=== PATIENT | male | born 1980 | race Caucasian/White ===

== ENCOUNTER 2019-08-04 16:27 | Inpatient (IN) | payer MEDICARE, MEDICAID ==
--- NOTE | 2019-08-04 17:03 | ED ---
Psychiatric Complaint - HPI Summary HPI Summary: This patient is a 38 year old M with a history of bipolar presenting to ED with a chief complaint of worsening psychiatric complaints since last November. Patient is [facility]. He states that right now he is not having an episode of his bipolar and he is very agreeable to me in the ED room. Patient states the medications he has been taking are no longer as effective and his bipolar has been getting worse. Patient reports he is more irritable more frequently. Patients family reports patient has been binge drinking alcohol a lot more, taking other drugs, and having more SI. Patient typically takes Ativan, Latuda, Odefsey, Xtampza, Zolpidem, and Gabapentin. Patient has been taking more oxycodone when he is not prescribed it. He also reports having increased episodes of blacking out. Patient last binge drank on 08/02/2019. Patient reports he is HIV+, but was unable to get his bloodwork checked recently. He is requesting a CD4 and a viral load. Patient was also recently diagnosed with Lymes disease. He had taken the 30-day course of doxycycline but he has not followed up with his doctor regarding the Lymes. He would like to follow-up on his Lymes before changing any of his psychiatric medications. The patient rates the pain 0/10 in severity. Symptoms aggravated by nothing. Symptoms alleviated by nothing. Patient denies fever. - History Of Current Complaint Chief Complaint: EDMentalHealth Time Seen by Provider: 08/04/19 16:53 Hx Obtained From: Patient Onset/Duration: Gradual Onset, Lasting Weeks - Since last November 2018, Still Present, Worse Since Timing: Constant Severity Initially: Mild Severity Currently: Moderate Aggravating Factor(s): Nothing Alleviating Factor(s): Nothing Associated Signs And Symptoms: Positive: Negative - Fever Related History: Positive For: Prior Psychiatric Issues Has Suicidal: Denies: Thoughts - Allergies/Home Medications Allergies/Adverse Reactions: Allergies Allergy/AdvReac Type Severity Reaction Status Date / Time amoxicillin Allergy Anaphylatic Verified 08/04/19 16:37 Shock cefaclor [From Ceclor] Allergy Rash Verified 08/04/19 16:37 Penicillins Allergy Anaphylatic Verified 08/04/19 16:37 Shock PMH/Surg Hx/FS Hx/Imm Hx Musculoskeletal History: Reports: Hx Back Problems, Hx Scoliosis, Other Musculoskeletal History - Scheurman's Disease Sensory History: Reports: Hx Cataracts, Hx Hearing Problem - tinnitus in both ears Opthamlomology History: Reports: Hx Cataracts Neurological History: Reports: Other Neuro Impairments/Disorders - Brain Cavernoma Psychiatric History: Reports: Hx Anxiety, Hx Depression, Hx Panic Disorder, Hx Inpatient Treatment, Hx Community Mental Health Tx, Hx Bipolar Disorder, Hx Suicide Attempt, Hx Substance Abuse Denies: Hx Eating Disorder, Hx Post Traumatic Stress Disorder, Hx Schizophrenia, Hx of Violent Episodes Against Others - Surgical History Surgery Procedure, Year, and Place: surgical biopsy, right inguinal canal, for a benign tumor Infectious Disease History: Yes Infectious Disease History: Reports: Hx Human Immunodeficiency Virus (HIV) - Pt diagnosed in 2011 Denies: Traveled Outside the [place] in Last 30 Days - Family History Known Family History: Positive: Other - Bipolar - Social History Alcohol Use: Binge drinking more often now Hx Substance Use: No Substance Use Type: Reports: None Smoking Status (MU): Light Every Day Tobacco Smoker Type: Cigarettes Have You Smoked in the Last Year: Yes Review of Systems Negative: Fever Psychological: Other - Binge-drinking, bipolar episodes All Other Systems Reviewed And Are Negative: Yes Physical Exam - Summary Physical Exam Summary: Appearance: The patient is well-nourished in no acute distress and in no acute pain. Skin: The skin is warm and dry, and skin color reflects adequate perfusion. HEENT: The head is normocephalic and atraumatic. The pupils are equal and reactive. The conjunctivae are clear and without drainage. Nares are patent and without drainage. Mouth reveals moist mucous membranes, and the throat is without erythema and exudate. The external ears are intact. The ear canals are patent and without drainage. The tympanic membranes are intact. Neck: The neck is supple with full range of motion and non-tender. There are no carotid bruits. There is no neck vein distension. Respiratory: Chest is non-tender. Lungs are clear to auscultation and breath sounds are symmetrical and equal. Cardiovascular: Heart is regular rate and rhythm. There is no murmur or rub auscultated. There is no peripheral edema and pulses are symmetrical and equal. Abdomen: The abdomen is soft and non-tender. There are normal bowel sounds heard in all four quadrants and there is no organomegaly palpated. Musculoskeletal: There is no back tenderness noted. Extremities are non-tender with full range of motion. There is good capillary refill. There is no peripheral edema or calf tenderness elicited. Neurological: Patient is alert and oriented to person, place and time. The patient has symmetrical motor strength in all four extremities. Cranial nerves are grossly intact. Deep tendon reflexes are symmetrical and equal in all four extremities. Psychiatric: The patient has an appropriate affect and does not exhibit any anxiety or depression. Triage Information Reviewed: Yes Vital Signs On Initial Exam: Initial Vitals Temp Pulse Resp BP Pulse Ox 99.2 F 80 19 136/60 100 08/04/19 16:29 08/04/19 16:29 08/04/19 16:29 08/04/19 16:29 08/04/19 16:29 Vital Signs Reviewed: Yes Procedures - Sedation Patient Received Moderate/Deep Sedation with Procedure: No Diagnostics - Vital Signs Vital Signs Temp Pulse Resp BP Pulse Ox 08/04/19 16:29 99.2 F 80 19 136/60 100 - Laboratory Result Diagrams: 08/04/19 17:24 08/04/19 17:24 Lab Statement: Any lab studies that have been ordered have been reviewed, and results considered in the medical decision making process. Re-Evaluation - Re-Evaluation First Eval Re-Evaluation Time: 18:28 Comment: Patient is medically clear for MHE. Course/Dx - Course Course Of Treatment: He has been medically cleared here in the emergency department and is awaiting a mental health eval. - Differential Dx/Clinical Impression Provider Diagnosis: Bipolar 1 disorder Discharge ED - Sign-Out/Discharge Documenting (check all that apply): Sign-Out Patient Signing out patient TO: Celeste Mohan - Discharge Plan Referrals: Basim INTERIANO,Kiel Alonso [Primary Care Provider] - - Attestation Statements Document Initiated by Scribe: Yes Documenting Scribe: Abe Taylor Provider For Whom Randy is Documenting (Include Credential): Duke Burnett MD Scribe Attestation: I, Abe Taylor, scribed for Duke Burnett MD on 08/04/19 at 1838. Scribe Documentation Reviewed: Yes Provider Attestation: The documentation as recorded by the Abe anna accurately reflects the service I personally performed and the decisions made by me, Duke Burnett MD Status of Scribe Document: Viewed
[2019-08-04 17:34] LABS: ABS Basophils 0.1 10^3/ul (0-0.2); ABS Lymphocytes 1.5 10^3/ul (1.0-4.8); ABS Monocytes 1.2 10^3/ul (0-0.8); ABS Neutrophils 11.6 10^3/ul (1.5-7.7); Eosinophil % 0.3 %; Hematocrit 45 % (42-52); Hemoglobin 15.2 g/dL (14.0-18.0); Lymphocyte % 10.3 %; Mean Corpuscular HGB Conc 34 g/dL (31-36); Mean Corpuscular Hemoglobin 33 pg (27-31); Mean Corpuscular Volume 98 fL (80-94); Mean Platelet Volume 6.7 fL (7.4-10.4); Platelet Count 472 10^3/uL (150-450); Red Blood Count 4.56 10^6 /uL (4.18-5.48); Red Cell Distribution Width 13 % (10-15); White Blood Count 14.4 10^3/uL (3.5-10.8)
[2019-08-04 17:43] LABS: Urine Appearance Clear; Urine Bilirubin Negative (Negative); Urine Blood Negative (Negative); Urine Color Yellow; Urine Glucose Negative (Negative); Urine Ketones Negative (Negative); Urine Nitrite Negative (Negative); Urine Protein Negative (Negative); Urine Urobilinogen Negative (Negative)
[2019-08-04 17:50] LABS: ALT 84 U/L (7-52); AST 28 U/L (13-39); Albumin/Globulin Ratio 2.1 (1-3); Alkaline Phosphatase 108 U/L (34-104); Anion Gap 7 mmol/L (2-11); BUN/Creatinine Ratio 15.5 (8-20); Blood Urea Nitrogen 16 mg/dL (6-24); CO2 Carbon Dioxide 29 mmol/L (22-32); Calcium 9.7 mg/dL (8.6-10.3); Chloride 104 mmol/L (101-111); EGFR African American 98.9 (>60); EGFR Non-African American 81.7 (>60); Globulin 2.4 g/dL (2-4); Glucose 98 mg/dL (70-100); Potassium 4.1 mmol/L (3.5-5.0); Sodium 140 mmol/L (135-145); Total Protein 7.4 g/dL (6.4-8.9)
[2019-08-04 18:02] LABS: Acetaminophen < 15 mcg/mL; Alcohol < 10 mg/dL (<10); Salicylate < 2.50 mg/dL (<30)
[2019-08-04 18:02] LABS: Urine Benzodiazepine Screen None Detected (None Detect); Urine Opiates Screen None Detected (None Detect)
[2019-08-04 18:16] LABS: TSH (Thyroid Stimulating Horm) 0.88 mcIU/mL (0.34-5.60)
[2019-08-04] MEDS ORDERED: Gabapentin CAP(*) 300 MG PO ONE (18:47)
[2019-08-04] MEDS: PTO: Emtricitabine/Rilpivirine/Teno (Odefsey) 200/25/25 TABLET PO SCH (18:55)
--- NOTE | 2019-08-04 19:13 | ED ---
Progress - Progress Note Progress Note: The patient is a sign-out from Dr. Duke Burnett MD, to Dr. Celeste Mohan MD, at change of shift at 1900 on 08/04/19, pending mental health evaluation and disposition. Dr. Garcia and mental health staff have evaluated the patient and have determined him to be appropriate for MHU hold at this time. The patient is a sign-out from Dr. Celeste Mohan MD, to Dr. Beth Morris MD, at change of shift at 0700 on 08/05/19, pending MHU hold and disposition. Re-Evaluation - Re-Evaluation First Eval Re-Evaluation Time: 18:28 Comment: Patient is medically clear for MHE. Second Eval Re-Evaluation Time: 16:24 Comment: A bed opened up here so patient was admitted to [facility] psych by Dr. Dsouza. legal paperwork signed. pt cooperative and in agreement Course/Dx - Diagnoses Provider Diagnoses: Major depression - Provider Notifications Discussed Care Of Patient With: Beatriz Garcia - psychiatry Time Discussed With Above Provider: 01:00 Instructed by Provider To: Other - Dr. Garcia and mental health staff have evaluated the patient and have determined him to be appropriate for MHU hold at this time. Discharge ED - Sign-Out/Discharge Documenting (check all that apply): Sign-Out Patient, Receiving Sign-Out Signing out patient TO: Beth Morris - Patient is a sign-out to Dr. Beth Morris MD, at change of shift at 0700 on 08/05/19, pending MHU hold and disposition. Receiving patient FROM: Duke Burnett - Patient is a sign-out from Dr. Duke Burnett MD, at change of shift at 1900 on 08/04/19, pending MHE and disposition. - Discharge Plan Condition: Improved Disposition: PSYCHIATRIC FACILITY-[facility] - Billing Disposition and Condition Condition: IMPROVED Disposition: Psychiatric Facility [facility] - Attestation Statements Document Initiated by Scribe: Yes Documenting Scribe: Jelly Linda Provider For Whom Scribe is Documenting (Include Credential): Dr. Celeste Mohan MD Scribe Attestation: Jelly Davis, scribed for Dr. Celeste Mohan MD on 08/08/19 at 2007. Scribe Documentation Reviewed: Yes Provider Attestation: The documentation as recorded by the scribe, Jelly Linda accurately reflects the service I personally performed and the decisions made by me, Dr. Celeste Mohan MD Status of [place] Document: Viewed Procedures - Sedation Patient Received Moderate/Deep Sedation with Procedure: No
[2019-08-04] MEDS ORDERED: oxyCODONE/Acetamin 5/325 MG* TAB PO ONE (20:23)
[2019-08-04] MEDS ORDERED: Nicotine PATCH 21 MG/24 HR* PATCH TRANSDERM ONE (21:40)
[2019-08-04] MEDS ORDERED: Zolpidem TAB* 5 MG PO ONE (23:34)
[2019-08-05] MEDS ORDERED: oxyCODONE/Acetamin 5/325 MG* TAB PO ONE (05:25)
--- NOTE | 2019-08-05 09:41 | ED ---
Progress - Progress Note Progress Note: Receiving sign-out from Dr. Mohan at shift change 0700 on 08/05/19 pending MHE. Daily medications administered at 1000. Patient completed MHE and diagnosed with major depression per Dr. Dsouza. No beds here so patient will be transferred. A bed opened up here so patient was admitted to [facility] by Dr. Dsouza. Re-Evaluation - Re-Evaluation First Eval Re-Evaluation Time: 16:01 Comment: Patient was given more pain meds. Patient will also receive sleep medications as normal. Second Eval Re-Evaluation Time: 16:24 Comment: A bed opened up here so patient was admitted to [facility] by Dr. Dsouza. legal paperwork signed. pt cooperative and in agreement Course/Dx - Course Course Of Treatment: He has been medically cleared here in the emergency department and is awaiting a mental health eval. Patient completed MHE and diagnosed with bipolar I disorder per Dr. Dsouza. No beds here so patient will be transferred. A bed opened up here so patient was admitted to [facility] voluntarily by Dr. Dsouza with dx of major depression. - Diagnoses Provider Diagnoses: Major depression - Provider Notifications Time Discussed With Above Provider: 01:00 Instructed by Provider To: Other - Dr. Garcia and mental health staff have evaluated the patient and have determined him to be appropriate for MHU hold at this time. Discharge ED - Sign-Out/Discharge Documenting (check all that apply): Patient Departure - Admit - Discharge Plan Condition: Stable Disposition: PSYCHIATRIC FACILITY-[facility] [place] - Billing Disposition and Condition Condition: STABLE Disposition: Psychiatric Facility [facility] [place] - Attestation Statements Document Initiated by Scribe: Yes Documenting Scribe: Antoni Taylor Provider For Whom Randy is Documenting (Include Credential): Beth Morris MD Scribe Attestation: I, Antoni Candelario and Abe Taylor, scribed for Beth Morris MD on 08/05/19 at 1737. Scribe Documentation Reviewed: Yes Provider Attestation: The documentation as recorded by the scribe, Antoni Taylor accurately reflects the service I personally performed and the decisions made by me, Beth Morris MD Status of Scribe Document: Viewed
[2019-08-05] MEDS ORDERED: oxyCODONE TAB* 5 MG TAB PO ONE ×2 (10:06→15:50)
--- NOTE | 2019-08-05 10:53 | PN ---
ED Psychiatric Progress Note Date of Service: 08/05/19 Subjective: ED day #1 for this 38 y.o. single, white male with a history of bipolar disorder and substance misuse arrives seeking voluntary psychiatric admission for SI. The patient has been abusing alcohol and oxycodone, while not taking his mood stabilizing medications. Objective: middle aged white male in blue scrubs laying in bed; appears somatic and uncomfortable; endorsing SI without plan; dysphoric Assessment: Bipolar Depression Plan: We will resume lurasidone therapy. The patient warrants voluntary admission, however, there are no available beds on the [facility]. Will transfer to outside facility. Vital Signs Temp Pulse Resp BP Pulse Ox 99 F 69 20 117/72 99 08/05/19 07:15 08/05/19 07:15 08/05/19 07:15 08/05/19 07:15 08/05/19 07:15 Lab Results - Entire Visit 08/04/19 08/04/19 08/04/19 17:32 17:32 17:24 WBC RBC Hgb Hct MCV MCH MCHC RDW Plt Count MPV Neut % (Auto) Lymph % (Auto) Morrill % (Auto) Eos % (Auto) Baso % (Auto) Absolute Neuts (auto) Absolute Lymphs (auto) Absolute Monos (auto) Absolute Eos (auto) Absolute Basos (auto) Absolute Nucleated RBC Nucleated RBC % Sodium 140 Potassium 4.1 Chloride 104 Carbon Dioxide 29 Anion Gap 7 BUN 16 Creatinine 1.03 Est GFR ( Amer) 98.9 Est GFR (Non-Af Amer) 81.7 BUN/Creatinine Ratio 15.5 Glucose 98 Calcium 9.7 Total Bilirubin 0.80 AST 28 ALT 84 H Alkaline Phosphatase 108 H Total Protein 7.4 Albumin 5.0 Globulin 2.4 Albumin/Globulin Ratio 2.1 TSH 0.88 Urine Color Yellow Urine Appearance Clear Urine pH 6.0 Ur Specific [place] 1.020 Urine Protein Negative Urine Ketones Negative Urine Blood Negative Urine Nitrate Negative Urine Bilirubin Negative Urine Urobilinogen Negative Ur Leukocyte Esterase Negative Urine Glucose Negative Salicylates < 2.50 Urine Opiates Screen None detected Acetaminophen < 15 Ur Barbiturates Screen None detected Ur Phencyclidine Scrn None detected Ur Amphetamines Screen None detected U Benzodiazepines Scrn None detected Urine Cocaine Screen None detected U Cannabinoids Screen None detected Serum Alcohol < 10 01/26/20 17:24 WBC 14.4 H RBC 4.56 Hgb 15.2 Hct 45 MCV 98 H MCH 33 H MCHC 34 RDW 13 Plt Count 472 H MPV 6.7 L Neut % (Auto) 80.8 Lymph % (Auto) 10.3 Morrill % (Auto) 8.2 Eos % (Auto) 0.3 Baso % (Auto) 0.4 Absolute Neuts (auto) 11.6 H Absolute Lymphs (auto) 1.5 Absolute Monos (auto) 1.2 H Absolute Eos (auto) 0.0 Absolute Basos (auto) 0.1 Absolute Nucleated RBC 0.0 Nucleated RBC % 0.0 Sodium Potassium Chloride Carbon Dioxide Anion Gap BUN Creatinine Est GFR ( Amer) Est GFR (Non-Af Amer) BUN/Creatinine Ratio Glucose Calcium Total Bilirubin AST ALT Alkaline Phosphatase Total Protein Albumin Globulin Albumin/Globulin Ratio TSH Urine Color Urine Appearance Urine pH Ur Specific [place] Urine Protein Urine Ketones Urine Blood Urine Nitrate Urine Bilirubin Urine Urobilinogen Ur Leukocyte Esterase Urine Glucose Salicylates Urine Opiates Screen Acetaminophen Ur Barbiturates Screen Ur Phencyclidine Scrn Ur Amphetamines Screen U Benzodiazepines Scrn Urine Cocaine Screen U Cannabinoids Screen Serum Alcohol
[2019-08-05] MEDS: Gabapentin CAP(*) 100 MG PO ONE ×2 (14:42→15:58)
[2019-08-05] MEDS ORDERED: Al Hydrox/Mg Hydrox/Simet LIQ* 30 ML UDC PO PRN (15:54)
[2019-08-05] MEDS ORDERED: Acetaminophen TAB* 325 MG PO PRN (15:54)
[2019-08-05] MEDS ORDERED: LORazepam TAB(*) 1 MG PO SCH (16:00)
[2019-08-05] MEDS: PTO: Emtricitabine/Rilpivirine/Teno (Odefsey) 200/25/25 TABLET PO SCH (18:55)
[2019-08-05] MEDS: Gabapentin CAP(*) 100 MG PO PRN (18:59)
[2019-08-05] MEDS: Ibuprofen TAB* 800 MG PO PRN (19:00)
[2019-08-05] MEDS: Nicotine* 2MG (FRUIT FLAVOR) GUM PO PRN (19:01)
[2019-08-05] MEDS ORDERED: Gabapentin CAP(*) 300 MG PO SCH (21:00)
[2019-08-05] MEDS ORDERED: Lurasidone(*) 20 MG TAB PO SCH (21:00)
[2019-08-05] MEDS: Nicotine Patch Removal NOTE PATCH OFF SCH (21:37)
[2019-08-06] MEDS: Thiamine TAB* 100 MG TAB PO SCH (08:22)
[2019-08-06] MEDS: Folic Acid TAB* 1 MG PO SCH (08:22)
[2019-08-06] MEDS: Gabapentin CAP(*) 100 MG PO PRN (08:22)
[2019-08-06] MEDS: Multivitamins/Minerals TAB PO SCH (08:22)
[2019-08-06] MEDS: Ibuprofen TAB* 800 MG PO PRN (08:23)
[2019-08-06] MEDS: Nicotine PATCH 14 MG/24 HR* PATCH TRANSDERM SCH (08:24)
[2019-08-06] MEDS ORDERED: Lidocaine PATCH 5%* 1 PATCH TRANSDERM PRN (12:43)
[2019-08-06] MEDS: oxyCODONE SR TAB(*) 15 MG TAB.SR PO SCH ×2 (13:30→20:25)
[2019-08-06] MEDS ORDERED: Lurasidone(*) 40 MG TAB PO SCH (17:00)
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
[2019-08-06] MEDS: PTO: Emtricitabine/Rilpivirine/Teno (Odefsey) 200/25/25 TABLET PO SCH (17:41)
[2019-08-06] MEDS ORDERED: Lidocaine Patch REMOVE* 1 NOTE MISC PRN (21:00)
[2019-08-06] MEDS ORDERED: oxyCODONE SR TAB(*) 15 MG TAB.SR PO SCH (21:00)
[2019-08-06] MEDS: Gabapentin CAP(*) 300 MG PO SCH (21:02)
[2019-08-06] MEDS: Nicotine Patch Removal NOTE PATCH OFF SCH (21:03)
[2019-08-07] MEDS: Nicotine PATCH 14 MG/24 HR* PATCH TRANSDERM SCH (08:06)
[2019-08-07] MEDS: oxyCODONE SR TAB(*) 15 MG TAB.SR PO SCH ×2 (08:07→20:10)
[2019-08-07] MEDS: Folic Acid TAB* 1 MG PO SCH (08:07)
[2019-08-07] MEDS: Thiamine TAB* 100 MG TAB PO SCH (08:07)
[2019-08-07] MEDS: Multivitamins/Minerals TAB PO SCH (08:07)
[2019-08-07] MEDS: Gabapentin CAP(*) 100 MG PO PRN ×2 (11:00→16:59)
--- NOTE | 2019-08-07 11:22 | PN ---
BSU: Group Therapy Note - Service Type Service Type: 39132 Group Psychotherapy - Cognitive Behavioral Group Therapy ( CBT):Patient was attentive and participatory in CBT programming this morning, and remained in good behavioral control. Patient expressed positive insights regarding relevant treatment interventions and goals.
--- NOTE | 2019-08-07 16:32 | PN ---
Subjective - Subjective Date of Service: 08/07/19 Service Type: 01277 Hosp care 25 min moderate complexity Subjective: Patient reports tolerating increase in lurasidone without untoward effects. He goes into great detail about his history of being hesitant to accept psychiatric medications. He states that when taking psych medications, he is less apt to engage in repetitive thinking and detach from being present in the moment when experiencing uncomfortability. He states he prefers to be able to do so. Xm1 Tank Driver prompts him to identify underlying fear. He responds by seemingly attempting to ascertain what I want to hear. Eventually, patient is able to identify that he is afraid of not having control and is praised for this identification. He goes into details of his experience with needing to advocate with providers in order to be accurately diagnosed with HIV. He also discusses perceived abandonment in that long-time providers have left agencies or are planning group home. He is encouraged to contemplate what it is in his control and what is not. Patient reports current dose of oxycodone SR is efficient. He agrees to allow software writer to collaborate with pain specialist but is mistrustful of conversation happening without his presence. Xm1 Tank Driver assures him the goal is collaboration. He denies misuse of opiate pain medication and is receptive to taper of such medications if replaced with adequate pain control. He agrees to increase lurasidone to 60mg. Xm1 Tank Driver phones [facility] and call is returned by Dr Roger. Conversation is brief per Dr Roger. He denies concerns that patient is abusing or misusing medications. Objective - General Observations Appearance: Well Groomed Stature: WNL Posture: Tense Eye Contact: Average, Intense Behavior/Activity: WNL - Interaction Observations Attitude Towards Examiner: Anxious, Defensive Stated Mood: Anxious Affect: Restricted Speech Pattern/Tone: Clear, Appropriate, Normal Volume Thought Process: Circumstantial Perception: WNL Thought Content: Preoccupation/Ruminations, Obsessional Hallucination Type: Denies Delusion Type: Denies - Cognitive Function Orientation: A&O x 4 Level of Consciousness: Alert Cognition: WNL Estimated Intelligence: Normal Insight: Mostly Blames Others for Problems Judgment Within Normal Limits: No Ability to Make Reasonable Decisions: Moderately Impaired - Medication Compliance Cooperative with Inpatient Medication Regimen: Yes - Group Participation Participates in Group Activities: Yes Assessment - Assessment Merits Inpatient Hospitalization: For Immediate Safety, For Stabilization Inpatient DSM-V Dx: F31.81 Clinical Impression: 38yo wm with 3 previous psychiatric hospitalizations and history of bipolar II d /o and PTSD who presented to ED with family members who have been concerned about depressive symptoms and alcohol use. Patient endorses mood dysregulation along with use of alcohol to quell symptoms. He merits hospitalization for immediate safety and stabilization. Plan - Plan Treatment Plan: Name: MARTIN CAREY Birthdate: 1980 [id number] continue acute intensive psychiatric treatment. may decrease to q30min and allow staff pass. increase lurasidone to 60mg. obtain collateral from [facility] and family. encourage behavioral interventions for anxiety. Continued Medication Management: Start Medication Medications: Current Medications Acetaminophen (Tylenol Tab*) 650 mg PO Q4H PRN PRN Reason: for pain; or Temp >101 F Al Hydrox/Mg Hydrox/Simethicone (Maalox Plus*) 30 ml PO Q4H PRN PRN Reason: INDIGESTION Emtricitabine/Rilpivirine/Tenofovir (Odefsey Tablet) 1 each PO DAILY@1700 [facility] Last Admin: 08/06/19 17:41 Dose: 1 each Folic Acid (Folvite Tab*) 1 mg PO DAILY [facility] Last Admin: 08/07/19 08:07 Dose: 1 mg Gabapentin (Neurontin Cap(*)) 100 mg PO Q6H PRN PRN Reason: ANXIETY/PAIN Last Admin: 08/07/19 11:00 Dose: 100 mg Gabapentin (Neurontin Cap(*)) 300 mg PO BEDTIME [facility] Last Admin: 08/06/19 21:02 Dose: 300 mg Ibuprofen (Motrin Tab*) 800 mg PO Q6H PRN PRN Reason: PAIN - MODERATE Last Admin: 08/06/19 08:23 Dose: 800 mg Lidocaine (Lidoderm 5% Patch*) 1 patch TRANSDERM DAILY PRN PRN Reason: pain Lorazepam (Ativan Tab(*)) 0 - 6 mg PO .PER [facility] PROTOCOL [facility]; Protocol Lurasidone HCl (Latuda) 60 mg PO DAILY@1700 [facility] Multivitamins/Minerals (Theragran/Minerals Tab*) 1 tab PO DAILY [facility] Last Admin: 08/07/19 08:07 Dose: 1 tab Nicotine (Nicotine Patch 14 Mg/24 Hr*) 1 patch TRANSDERM DAILY [facility] Last Admin: 08/07/19 08:06 Dose: 1 patch Nicotine Polacrilex (Nicotine Gum*) 2 mg PO Q2H PRN PRN Reason: CRAVINGS Last Admin: 08/05/19 19:01 Dose: 2 mg Oxycodone HCl (Oxycontin(*)) 15 mg PO Q12HR [facility] Last Admin: 08/07/19 08:07 Dose: 15 mg Pharmacy Profile Note (Nicotine Patch Removal Note*) 1 note PATCH OFF 2099 [facility] Last Admin: 08/06/19 21:03 Dose: 1 note Pharmacy Profile Note (Lidocaine Patch Remove*) 1 note N/A 2099 PRN PRN Reason: patch placement Thiamine HCl (Vitamin B-1 Tab*) 100 mg PO DAILY [facility] Last Admin: 08/07/19 08:07 Dose: 100 mg - Discharge Plan Discharge Plan: Inpatient Hospitalization
[2019-08-07] MEDS: Ibuprofen TAB* 800 MG PO PRN (16:58)
[2019-08-07] MEDS: PTO: Emtricitabine/Rilpivirine/Teno (Odefsey) 200/25/25 TABLET PO SCH (17:22)
[2019-08-07] MEDS: Lurasidone(*) 60 MG TAB PO SCH (17:24)
[2019-08-07] MEDS: Gabapentin CAP(*) 300 MG PO SCH (21:35)
[2019-08-07] MEDS: Nicotine Patch Removal NOTE PATCH OFF SCH (22:34)
[2019-08-08] MEDS: Folic Acid TAB* 1 MG PO SCH (07:48)
[2019-08-08] MEDS: oxyCODONE SR TAB(*) 15 MG TAB.SR PO SCH ×2 (07:48→20:10)
[2019-08-08] MEDS: Thiamine TAB* 100 MG TAB PO SCH (07:48)
[2019-08-08] MEDS: Multivitamins/Minerals TAB PO SCH (07:48)
[2019-08-08] MEDS: Nicotine PATCH 14 MG/24 HR* PATCH TRANSDERM SCH (07:49)
[2019-08-08 08:01] LABS: HDL Cholesterol 69.6 mg/dL
[2019-08-08] MEDS: Gabapentin CAP(*) 100 MG PO PRN ×2 (11:22→18:07)
[2019-08-08] MEDS: Ibuprofen TAB* 800 MG PO PRN ×2 (11:23→17:22)
--- NOTE | 2019-08-08 16:22 | DCNOTE ---
Subjective - Subjective Service Types: 08034 Hosp DC Day Mgmt complex over 30 min Discharge Date: 08/09/19 Subjective: Patient reports he was upset after family meeting on evening and is proud of himself for utilizing healthy coping skills. He states he is looking forward to returning home and is motivated to continue recovery efforts. His brother and [id number] are present at discharge and agreeable with plan. They are given information about [facility] and [place]. Patient reports having supply of Latuda samples at home. He denies SI or passive wish. He denies cravings or urges to drink alcohol. Objective - General Observations Appearance: Well Groomed Stature: WNL Posture: WNL Eye Contact: Average Behavior/Activity: WNL - Interaction Observations Attitude Towards Examiner: Cooperative Stated Mood: Euthymic Affect: Bright Speech Pattern/Tone: Clear, Appropriate, Normal Volume Thought Process: Coherent, Goal Directed Perception: WNL Thought Content: WNL Hallucination Type: Denies Delusion Type: Denies - Cognitive Function Orientation: A&O x 4 Level of Consciousness: Alert Cognition: WNL Estimated Intelligence: Normal Insight: WNL Judgment Within Normal Limits: Yes - Medication Compliance Cooperative with Inpatient Medication Regimen: Yes - Group Participation Participates in Group Activities: Yes DC Assessment - Assessment Clinical Impression: 38yo wm with 3 previous psychiatric hospitalizations and history of bipolar II d /o and PTSD who presented to ED with family members who have been concerned about depressive symptoms and alcohol use. Patient endorses mood dysregulation along with use of alcohol to quell symptoms. He has successfully detoxed from alcohol, tolerated medicated changes, and stabilized in this structured setting. Merits Inpatient Hospitalization: No Clear for Discharge: Adequate Clinical Respons, Acceptable Safety Profile Inpatient DSM-V Dx: F31.81 Discharge Planning - Discharge Planning Discharge Plan: Outpatient Follow Up Outpatient Program: [facility] Recommendations for Continuing Care: Medication Management, Psychotherapy, Substance Abuse Counseling, Primary Care Followup Medications: Current Medications Emtricitabine/Rilpivirine/Tenofovir (Odefsey Tablet) 1 each PO DAILY@1700 [facility] Last Admin: 08/07/19 17:22 Dose: 1 each Gabapentin (Neurontin Cap(*)) 100 mg PO Q6H PRN PRN Reason: ANXIETY/PAIN Last Admin: 08/08/19 11:22 Dose: 100 mg Gabapentin (Neurontin Cap(*)) 300 mg PO BEDTIME [facility] Last Admin: 08/07/19 21:35 Dose: 300 mg Lurasidone HCl (Latuda) 60 mg PO DAILY@1700 [facility] Oxycodone HCl (Oxycontin(*)) 15 mg PO Q12HR [facility] Last Admin: 08/08/19 07:48 Dose: 15 mg Discharge Planning: Prescriptions provided for discharge [x] Yes [] No Follow up care details as per social work arrangements: [facility] [address] Stallworth, primary care Dr Roger, pain management Patient response to discharge plan: [x] eager for discharge [x] agreeable with discharge plan [] ambivalent about discharge [] disagrees with discharge today
[2019-08-08] MEDS: Lurasidone(*) 60 MG TAB PO SCH (16:59)
[2019-08-08] MEDS: PTO: Emtricitabine/Rilpivirine/Teno (Odefsey) 200/25/25 TABLET PO SCH (17:19)
[2019-08-08] MEDS: Gabapentin CAP(*) 300 MG PO SCH (20:48)
[2019-08-08] MEDS: Nicotine Patch Removal NOTE PATCH OFF SCH (20:49)
[2019-08-08] MEDS: Nicotine* 2MG (FRUIT FLAVOR) GUM PO PRN (20:50)
[2019-08-09] MEDS: Gabapentin CAP(*) 100 MG PO PRN ×2 (08:32→14:57)
[2019-08-09] MEDS: Folic Acid TAB* 1 MG PO SCH (08:33)
[2019-08-09] MEDS: Nicotine PATCH 14 MG/24 HR* PATCH TRANSDERM SCH (08:33)
[2019-08-09] MEDS: oxyCODONE SR TAB(*) 15 MG TAB.SR PO SCH (08:33)
[2019-08-09] MEDS: Thiamine TAB* 100 MG TAB PO SCH (08:33)
[2019-08-09] MEDS: Multivitamins/Minerals TAB PO SCH (08:33)
[2019-08-09 09:26] VITALS: BP 130/69
--- NOTE | 2019-08-09 12:04 | PN ---
BSU: Group Therapy Note - Service Type Service Type: 07130 Group Psychotherapy - Cognitive Behavioral Group Therapy ( CBT):Patient was attentive and participatory in CBT programming this morning, and remained in good behavioral control. Patient expressed positive insights regarding relevant treatment interventions and goals.
[2019-08-09] MEDS: Ibuprofen TAB* 800 MG PO PRN (14:57)
== END 2019-08-09 17:00 | disposition home or self-care (01) | DRG 885 ==
LOC: ED 16:27 → BSU 08-05 15:54
PROVIDERS: ADMIT Psychiatry & Neurology Psychiatry; ATTEND Psychiatry & Neurology Psychiatry
PROC: GZHZZZZ Group Psychotherapy (ICD-10-PCS; principal; 2019-08-07)
DX: F31.81 Bipolar II disorder (principal); R45.851 Suicidal ideations; F43.10 Post-traumatic stress disorder, unspecified; F10.10 Alcohol abuse, uncomplicated; Z51.5 Encounter for palliative care; Z21 Asymptomatic human immunodeficiency virus [HIV] infection status; F60.3 Borderline personality disorder; M41.9 Scoliosis, unspecified; F41.0 Panic disorder [episodic paroxysmal anxiety]; F17.210 Nicotine dependence, cigarettes, uncomplicated; Z79.899 Other long term (current) drug therapy; Z91.410 Personal history of adult physical and sexual abuse; Z88.0 Allergy status to penicillin; Z88.1 Allergy status to other antibiotic agents
CPT/HCPCS: 36415; 80053; 80061; 80307; 80320; 80329; 81003; 83036; 84443; 85025; 90853; 99222; 99232; 99238; 99284; A9270-GY; G0480